=== PATIENT | male | born 1980 | race African-American/Black ===

== ENCOUNTER 2017-12-27 09:50 | Emergency (ER) | payer SELFPAY | END 2017-12-27 10:43 | disposition home or self-care (01) | LOC: ER 09:50 | DX: S62.522A Displaced fracture of distal phalanx of left thumb, initial encounter for closed fracture (principal); W23.1XXA Caught, crushed, jammed, or pinched between stationary objects, initial encounter; Y93.89 Activity, other specified; Y92.89 Other specified places as the place of occurrence of the external cause; Y99.8 Other external cause status | CPT/HCPCS: 29125; 73140; 99284 ==

== ENCOUNTER 2018-03-23 07:16 | Emergency (ER) | payer BC ==
[~2018-03-23] VITALS: Ht 172.7 cm; Wt 99.8 kg
[~2018-03-23 07:16] MED LIST: HYDR-971 PO; NAPR500T8 PO
[2018-03-23 07:35] VITALS: BP 143/74
[2018-03-23] MEDS ORDERED: GUAI-40 PO (08:25)
[2018-03-23] MEDS ORDERED: AZIT500T4 PO (08:25)
--- NOTE | 2018-03-23 13:26 | PHYS DOC ---
Past Medical History Past Medical History: Other Additional Past Medical Histor: HARD OF HEARING Past Surgical History: No Surgical History Alcohol Use: Occasionally Drug Use: None Adult General Chief Complaint Chief Complaint: COUGH HPI HPI Patient is a 37 year old male who presents with productive cough, nasal congestion, rhinorrhea and restlessness for the past 2 days. No fever chills, nausea vomiting or sweats. No chest pain, chest tightness, shortness of breath, wheezing, nausea vomiting or sweats. No other acute symptoms or complaints.[] Review of Systems Review of Systems Review symptoms as per history of present illness. All other systems were reviewed and found to be within normal limits, except as documented in this note. Allergies Allergies Allergies Coded Allergies Type Severity Reaction Last Updated Verified No Known Drug Allergies 03/23/18 No Physical Exam Physical Exam Constitutional: Well developed, well nourished, no acute distress, non-toxic appearance. [] HENT: Normocephalic, atraumatic, bilateral external ears normal, oropharynx moist, and, rhinorrhea, posterior oropharynx, no swelling or exudate. [] Eyes: PERRLA, EOMI, conjunctiva normal, no discharge. [] Neck: Normal range of motion. [] Cardiovascular:Heart rate regular rhythm, no murmur [] Lungs & Thorax: Bilateral breath sounds clear to auscultation [] Abdomen: Bowel sounds normal, soft, no tenderness. [] Skin: Warm, dry. [] Back: No tenderness. [] Extremities: No tenderness, no edema. [] Neurologic: Alert and oriented X 3, normal motor function, normal sensory function, no focal deficits noted. [] Psychologic: Affect normal, judgement normal, mood normal. [] Current Patient Data Vital Signs Vital Signs Date Time Temp Pulse Resp B/P (MAP) Pulse Ox O2 Delivery O2 Flow Rate FiO2 03/23/18 07:35 97.8 70 18 143/74 (97) 96 Room Air 97.8 EKG EKG [] Radiology/Procedures Radiology/Procedures [] Course & Med Decision Making Course & Med Decision Making Pertinent Labs and Imaging studies reviewed. (See chart for details) [URI without respiratory compromise.] Dragon Disclaimer Dragon Disclaimer This electronic medical record was generated, in whole or in part, using a voice recognition dictation system. Departure Departure Impression: Primary Impression: Acute bronchitis Disposition: 01 HOME, SELF-CARE Condition: GOOD Patient Instructions: Acute Bronchitis, [id number] Additional Instructions: Please newly prescribed medication instruction follow-up with your PCP in 3-5 days for reevaluation if symptoms persist. Return to the ED if new or worsening symptoms. Scripts Azithromycin (AZITHROMYCIN TABLET) 500 Mg Tablet 500 MG PO DAILY for ANTI-BIOTIC, #5 TAB 0 Refills Prov: THOMAS VALDEZ DO 03/23/18 Guaifenesin/Pseudoephedrne Hcl (MUCINEX D ER TABLET) 1 Each Tab.er.12h 1 TAB PO BID, #20 TAB Prov: THOMAS VALDEZ DO 03/23/18 THOMAS VALDEZ DO Mar 23, 2018 13:26
== END 2018-03-23 09:02 | disposition home or self-care (01) ==
LOC: ER 07:16
DX: J20.9 Acute bronchitis, unspecified (principal)
CPT/HCPCS: 99283